=== PATIENT | female | born 1965 | race African-American/Black ===

== ENCOUNTER 2017-03-21 17:46 | Emergency (ER) | payer BC ==
[2017-03-21] MEDS: BENZONATATE 100 MG CAPSULE. PO ×2 (20:07)
[2017-03-21] MEDS: ACETAMINOPHEN 325 MG TABLET. PO ×2 (20:08)
[2017-03-21] MEDS: IBUPROFEN 600 MG TABLET. PO ×2 (20:08)
[2017-03-21 21:11] LABS: INFLUENZA A PATIENT NEGATIVE (NEGATIVE); INFLUENZA B PATIENT NEGATIVE (NEGATIVE); OBC FLU VALID
[2017-03-22 10:18] LABS: NEGATIVE OBC STREP NEG; POSITIVE OBC STREP POS
== END 2017-03-21 21:49 | disposition home or self-care (01) ==
LOC: ER 17:46
DX: J11.1 Influenza due to unidentified influenza virus with other respiratory manifestations (principal); K21.9 Gastro-esophageal reflux disease without esophagitis; F41.9 Anxiety disorder, unspecified
CPT/HCPCS: 87070; 87804; 87804-59; 87880; 99284